=== PATIENT | female | born 1985 | race Caucasian/White ===

== ENCOUNTER 2019-06-05 16:57 | Outpatient (CLI) | payer OTHER ==
[~2019-06-05] VITALS: Ht 157.5 cm; Wt 87.8 kg
[~2019-06-05 16:57] MED LIST: PREN-19 PO
[2019-06-05 17:34] VITALS: BP 137/79; PULSE 121; RESP 19; Ht 157.5 cm; Wt 87.8 kg
[2019-06-05] MEDS ORDERED: AL HYDROX/MG HYDROX/SIMETH 30 ML CUP PO ONE (22:00)
== END 2019-06-05 22:48 | disposition home or self-care (01) ==
LOC: OBT 16:57 → L-D 16:58 → OBT 22:48
PROVIDERS: ATTEND Obstetrics & Gynecology
DX: O21.0 Mild hyperemesis gravidarum (principal); Z3A.28 28 weeks gestation of pregnancy
CPT/HCPCS: 76705; 76817; 76818; 80053; 81001; 82150; 83690; 85025; 87086; Z7500; Z7610; G0463